=== PATIENT | female | born 1950 | race Caucasian/White ===

== ENCOUNTER 2017-01-28 18:34 | Inpatient (IN) | payer MEDICARE, OTHER ==
[~2017-01-28] VITALS: Ht 152.4 cm; Wt 45.4 kg
[~2017-01-28 18:34] MED LIST: LIPITOR10 MG PO
[2017-01-28 19:54] LABS: HEMOGLOBIN 15.4 gm/dl (12.3-15.3); RED BLOOD COUNT 5.52 M/UL (4.00-5.10); WHITE BLOOD COUNT 13.9 K/UL (4.5-11.0)
[2017-01-29 04:52] LABS: WHITE BLOOD COUNT 16.2 K/UL (4.5-11.0)
[2017-01-29 04:53] LABS: HEMOGLOBIN 12.9 gm/dl (12.3-15.3); RED BLOOD COUNT 4.71 M/UL (4.00-5.10)
[2017-01-29] MEDS ORDERED: ZYLOPRIM 100 M100 MG PO (07:01)
[2017-01-29] MEDS ORDERED: LANTUS100 UNIT/1 SQ (07:01)
[2017-01-29] MEDS ORDERED: DOXEPIN HCL25 MG PO (07:02)
[2017-01-29] MEDS ORDERED: JANUMET 50-1,01 EACH PO (07:02)
[2017-01-29] MEDS ORDERED: FARXIGA10 MG PO (07:02)
[2017-01-29] MEDS ORDERED: NEURONTIN 300300 MG PO (07:03)
[2017-01-29] MEDS ORDERED: ALENDRONATE SOD70 MG PO (07:03)
[2017-01-29] MEDS ORDERED: HYDROCODON-ACE1 EAC6 PO (07:04)
[2017-01-30 04:51] LABS: HEMOGLOBIN 13.4 gm/dl (12.3-15.3); RED BLOOD COUNT 4.91 M/UL (4.00-5.10); WHITE BLOOD COUNT 12.6 K/UL (4.5-11.0)
[2017-01-30 05:10] LABS: BUN/CREATININE RATIO 24 (0-10)
[2017-01-31 05:20] LABS: HEMOGLOBIN 13.4 gm/dl (12.3-15.3); RED BLOOD COUNT 4.92 M/UL (4.00-5.10); WHITE BLOOD COUNT 12.8 K/UL (4.5-11.0)
[2017-01-31 05:56] LABS: BUN/CREATININE RATIO 29 (0-10)
[2017-02-01 06:40] LABS: HEMOGLOBIN 13.9 gm/dl (12.3-15.3); RED BLOOD COUNT 5.06 M/UL (4.00-5.10); WHITE BLOOD COUNT 10.6 K/UL (4.5-11.0)
[2017-02-01 06:58] LABS: BUN/CREATININE RATIO 19 (0-10)
[2017-02-02 05:55] LABS: HEMOGLOBIN 13.2 gm/dl (12.3-15.3); RED BLOOD COUNT 4.83 M/UL (4.00-5.10); WHITE BLOOD COUNT 8.8 K/UL (4.5-11.0)
[2017-02-02 06:12] LABS: BUN/CREATININE RATIO 18 (0-10)
[2017-02-03 05:36] LABS: HEMOGLOBIN 11.3 gm/dl (12.3-15.3)
[2017-02-03 05:45] LABS: RED BLOOD COUNT 4.16 M/UL (4.00-5.10); WHITE BLOOD COUNT 6.4 K/UL (4.5-11.0)
[2017-02-03 05:56] LABS: BUN/CREATININE RATIO 16 (0-10)
--- NOTE | 2017-02-03 11:28 | NUR ---
1130 - Fingerstick noted at 58; patient denies any C/O; repeated finger stick immediately in other hand; noted at 63. 4 oz OJ given and drank, lunch previously order and awaoting arrival; will recheck fingerstick at 1230.
[2017-02-03 15:06] LABS: BUN/CREATININE RATIO 12 (0-10)
--- NOTE | 2017-02-03 15:59 | NUR ---
[id number] - Dr Samson here to do bedside Thoracentesis of RIGHT side, timeout performed at bedside. 450 ml Clear-yellow fluid returned; patient tolerated well, with mo S\S noted of pneumothorax - STAT PCR ordered. Pleural fluid sent to lab per orders.
[2017-02-03 16:22] LABS: LDH, BODY FLUID 390 U/L; TOTAL PROTEIN, BODY FLUID 3.3 gm/dL
[2017-02-03 16:33] LABS: BODY FLUID SOURCE PLEURAL
[2017-02-04 05:49] LABS: HEMOGLOBIN 11.7 gm/dl (12.3-15.3); RED BLOOD COUNT 4.34 M/UL (4.00-5.10); WHITE BLOOD COUNT 5.8 K/UL (4.5-11.0)
[2017-02-04 06:15] LABS: BUN/CREATININE RATIO 10 (0-10)
[2017-02-05 05:28] LABS: RED BLOOD COUNT 4.47 M/UL (4.00-5.10); WHITE BLOOD COUNT 6.4 K/UL (4.5-11.0)
[2017-02-05 05:42] LABS: BUN/CREATININE RATIO 12 (0-10)
[2017-02-05] MEDS ORDERED: COMBIVENT0.074 GM/I INH ×2 (14:01→14:02)
[2017-02-05] MEDS ORDERED: ZYVOX600 MG PO (14:04)
== END 2017-02-05 15:05 | disposition home or self-care (01) | DRG 853 ==
LOC: ER1 18:34 → ZEROF 01-29 00:59 → PROG CARE 01-29 00:59 → M/S 01-31 21:25
PROVIDERS: Family Medicine; Internal Medicine; ADMIT Emergency Medicine
PROC: 0J990ZZ Drainage of Buttock Subcutaneous Tissue and Fascia, Open Approach (ICD-10-PCS; principal; 2017-02-01)
PROC: 0W993ZZ Drainage of Right Pleural Cavity, Percutaneous Approach (ICD-10-PCS; 2017-02-03)
DX: A41.9 Sepsis, unspecified organism (principal); J15.212 Pneumonia due to Methicillin resistant Staphylococcus aureus; L02.31 Cutaneous abscess of buttock; N30.00 Acute cystitis without hematuria; J91.8 Pleural effusion in other conditions classified elsewhere; R09.02 Hypoxemia; E87.6 Hypokalemia; E11.65 Type 2 diabetes mellitus with hyperglycemia; R63.4 Abnormal weight loss; I10 Essential (primary) hypertension; E78.5 Hyperlipidemia, unspecified; R53.1 Weakness; B95.62 Methicillin resistant Staphylococcus aureus infection as the cause of diseases classified elsewhere; Z79.4 Long term (current) use of insulin; Z79.891 Long term (current) use of opiate analgesic; Z79.899 Other long term (current) drug therapy
CPT/HCPCS: 36415; 36600; 70450; 71010; 71020; 71250; 71260; 80048; 80053; 80202; 81001; 82550; 82553; 82803; 82945; 82962; 83605; 83615; 83874; 84132; 84155; 84157; 84484; 85025; 85027; 87040; 87070; 87077; 87081; 87086; 87186; 87205; 87880; 89051; 93005; 94640; 94664; 96361; 96365; 96367; 99285; J0456; J0696; J1956; J3370; J7030; J7050; J7070; Q9962

== ENCOUNTER → 2017-03-01 | Outpatient (CLI) | payer MEDICARE, OTHER ==
[~2017-03-01] MED LIST changes: +ALENDRONATE SOD70 MG PO; +COMBIVENT0.074 GM/I INH; +DOXEPIN HCL25 MG PO; +FARXIGA10 MG PO; +HYDROCODON-ACE1 EAC6 PO; +JANUMET 50-1,01 EACH PO; +LANTUS100 UNIT/1 SQ; +NEURONTIN 300300 MG PO; +ZYLOPRIM 100 M100 MG PO; +ZYVOX600 MG PO
== END ==
LOC: RAD 16:16
DX: J15.8 Pneumonia due to other specified bacteria (principal); I12.9 Hypertensive chronic kidney disease with stage 1 through stage 4 chronic kidney disease, or unspecified chronic kidney disease; N18.3 Chronic kidney disease, stage 3 (moderate); E11.65 Type 2 diabetes mellitus with hyperglycemia; E53.9 Vitamin B deficiency, unspecified; E55.9 Vitamin D deficiency, unspecified; E78.2 Mixed hyperlipidemia; E79.0 Hyperuricemia without signs of inflammatory arthritis and tophaceous disease; G89.4 Chronic pain syndrome; I95.2 Hypotension due to drugs; J01.80 Other acute sinusitis; K05.11 Chronic gingivitis, non-plaque induced; L08.89 Other specified local infections of the skin and subcutaneous tissue; M15.8 Other polyosteoarthritis; M51.36 Other intervertebral disc degeneration, lumbar region; M81.0 Age-related osteoporosis without current pathological fracture; R22.0 Localized swelling, mass and lump, head; R63.4 Abnormal weight loss; R68.84 Jaw pain
CPT/HCPCS: 71020

== ENCOUNTER 2017-08-27 10:41 | Emergency (ER) | payer MEDICARE, OTHER ==
[2017-08-27 11:48] LABS: HEMOGLOBIN 13.1 gm/dl (12.3-15.3); RED BLOOD COUNT 4.76 M/UL (4.00-5.10); WHITE BLOOD COUNT 8.1 K/UL (4.5-11.0)
[2017-08-27 12:07] LABS: BUN/CREATININE RATIO 21 (0-10)
== END 2017-08-27 14:10 | disposition home or self-care (01) ==
LOC: ER1 10:41
PROVIDERS: Physician Assistant
DX: J18.9 Pneumonia, unspecified organism (principal); M54.2 Cervicalgia; H92.02 Otalgia, left ear; R51 Headache; E11.9 Type 2 diabetes mellitus without complications; F17.290 Nicotine dependence, other tobacco product, uncomplicated
CPT/HCPCS: 71260; 80053; 85025; 99284; J7050; Q9962

== ENCOUNTER 2020-12-23 10:44 | Emergency (ER) | payer MEDICARE, OTHER | END 2020-12-23 13:26 | disposition home or self-care (01) | LOC: ER1 10:44 | DX: M25.572 Pain in left ankle and joints of left foot (principal) | CPT/HCPCS: 73610; 99283 ==

== ENCOUNTER → 2020-12-23 | Outpatient (CLI) | payer MEDICARE, OTHER ==
[~2020-12-23] MED LIST changes: +BASAGLAR K100 UNIT/1 SQ; +ECOTRIN81 MG PO; +FLOMAX0.4 MG PO; +NORCO 5-325 TA1 EACH PO; +NOVOLOG100 UNIT/1 SQ; +ZOFRAN ODT 4 MG4 MG SL
[2020-12-23 10:20] LABS: BUN/CREATININE RATIO 18 (0-10)
== END ==
LOC: LAB 09:26
PROVIDERS: Emergency Medicine
DX: E11.649 Type 2 diabetes mellitus with hypoglycemia without coma (principal); E11.65 Type 2 diabetes mellitus with hyperglycemia; G89.4 Chronic pain syndrome; M15.8 Other polyosteoarthritis; M51.36 Other intervertebral disc degeneration, lumbar region; E11.22 Type 2 diabetes mellitus with diabetic chronic kidney disease; I12.9 Hypertensive chronic kidney disease with stage 1 through stage 4 chronic kidney disease, or unspecified chronic kidney disease; N18.30 Chronic kidney disease, stage 3 unspecified; M81.0 Age-related osteoporosis without current pathological fracture
CPT/HCPCS: 36415; 80053; 83036

== ENCOUNTER 2021-01-17 20:24 | Emergency (ER) | payer MEDICARE, OTHER ==
[2021-01-17 20:57] LABS: HEMOGLOBIN 15.9 gm/dl (12.3-15.3); RED BLOOD COUNT 5.85 M/UL (4.00-5.10); WHITE BLOOD COUNT 10.1 K/UL (4.5-11.0)
[2021-01-17 21:30] LABS: BUN/CREATININE RATIO 13 (0-10)
== END 2021-01-18 00:01 | disposition home or self-care (01) ==
LOC: ER1 20:24
PROVIDERS: Emergency Medicine
DX: M17.11 Unilateral primary osteoarthritis, right knee (principal); R00.0 Tachycardia, unspecified; E11.9 Type 2 diabetes mellitus without complications; I10 Essential (primary) hypertension
CPT/HCPCS: 36415; 71045; 73562; 80053; 82550; 82553; 83874; 84484; 85025; 85379; 93005; 99284; Q9967

== ENCOUNTER → 2021-04-18 | Outpatient (CLI) | payer MEDICARE, OTHER | LOC: EXRD 11:15 | DX: M79.604 Pain in right leg (principal); M79.605 Pain in left leg | CPT/HCPCS: 93925 ==

== ENCOUNTER → 2021-06-26 | Outpatient (CLI) | payer MEDICARE, OTHER ==
[~2021-06-26] MED LIST changes: +ATORVASTATIN CA40 MG PO; +AUGMENTIN 875-1 EACH PO; -BASAGLAR K100 UNIT/1 SQ; +ELIQUIS2.5 MG PO; +HUMALOG 10100 UNITS/ SC; +HUMALOG100 UNIT/3 INJ; +LOPRESSOR 25 MG25 MG PO; +MELOXICAM15 MG PO; +METOPROLOL TART25 MG PO; +MUPIROCIN22 GM TOP; -NEURONTIN 300300 MG PO; +NEURONTIN600 MG PO; +TOUJEO MAX300 UNIT/1 SQ
[2021-06-26 13:01] LABS: HEMOGLOBIN 14.4 gm/dl (12.3-15.3); RED BLOOD COUNT 5.09 M/UL (4.00-5.10); WHITE BLOOD COUNT 4.3 K/UL (4.5-11.0)
[2021-06-27 06:10] LABS: CREATININE, URINE 72.6 mg/dL (Not Estab.)
[2021-06-27 18:12] LABS: CHOLESTEROL, TOTAL 155 mg/dL (100-199); HDL SIZE 9.3 nm (>=9.2); HDL-C 51 mg/dL (>39); HDL-P (TOTAL) 28.3 umol/L (>=30.5); LARGE HDL-P 5.7 umol/L (>=4.8); LARGE VLDL-P 2.7 nmol/L (<=2.7); LDL SIZE 20.9 nm (>20.5); LDL SIZE 20.9 nm (>=20.8); LDL-C 76 mg/dL (0-99); LDL-P 989 nmol/L (<1000); LP-IR SCORE 47 (<=45); SMALL LDL-P 336 nmol/L (<=527); TRIGLYCERIDES 166 mg/dL (0-149); VLDL SIZE 47.2 nm (<=46.6)
== END ==
LOC: LAB 11:31
PROVIDERS: Emergency Medicine
DX: E11.22 Type 2 diabetes mellitus with diabetic chronic kidney disease (principal); I12.9 Hypertensive chronic kidney disease with stage 1 through stage 4 chronic kidney disease, or unspecified chronic kidney disease; N18.30 Chronic kidney disease, stage 3 unspecified; E11.65 Type 2 diabetes mellitus with hyperglycemia; E11.69 Type 2 diabetes mellitus with other specified complication; E78.2 Mixed hyperlipidemia
CPT/HCPCS: 36415; 80053; 80061; 82043; 82570; 83036; 83704; 84443; 84550; 85025

== ENCOUNTER 2021-06-28 09:23 | Emergency (ER) | payer MEDICARE, OTHER ==
[~2021-06-28 09:23] MED LIST changes: -ALENDRONATE SOD70 MG PO; -ATORVASTATIN CA40 MG PO; -AUGMENTIN 875-1 EACH PO; -ELIQUIS2.5 MG PO; -HUMALOG 10100 UNITS/ SC; -HUMALOG100 UNIT/3 INJ; -LIPITOR10 MG PO; -LOPRESSOR 25 MG25 MG PO; -MELOXICAM15 MG PO; -METOPROLOL TART25 MG PO; -MUPIROCIN22 GM TOP; -NEURONTIN600 MG PO; -TOUJEO MAX300 UNIT/1 SQ
[2021-08-18] MEDS ORDERED: ALENDRONATE SOD70 MG PO (07:03)
== END 2021-06-28 14:45 | disposition home or self-care (01) ==
LOC: ER1 09:23
DX: M54.5 Low back pain (principal); R05 Cough; E11.9 Type 2 diabetes mellitus without complications; Z90.710 Acquired absence of both cervix and uterus; W19.XXXA Unspecified fall, initial encounter
CPT/HCPCS: 71045; 72131; 72170; 99284

== ENCOUNTER 2021-07-02 12:45 | Inpatient (IN) | payer MEDICARE, OTHER ==
[~2021-07-02] VITALS: Ht 160 cm; Wt 61.2 kg
[~2021-07-02 12:45] MED LIST changes: +ALENDRONATE SOD70 MG PO
[2021-07-02 16:40] LABS: HEMOGLOBIN 13.9 gm/dl (12.3-15.3); RED BLOOD COUNT 5.25 M/UL (4.00-5.10); WHITE BLOOD COUNT 4.1 K/UL (4.5-11.0)
[2021-07-03 05:03] LABS: HEMOGLOBIN 14.8 gm/dl (12.3-15.3); RED BLOOD COUNT 5.26 M/UL (4.00-5.10); WHITE BLOOD COUNT 4.4 K/UL (4.5-11.0)
[2021-07-03 05:23] LABS: BUN/CREATININE RATIO 29 (0-10)
[2021-07-03] MEDS ORDERED: NEURONTIN600 MG PO (07:03)
[2021-07-03] MEDS ORDERED: MELOXICAM15 MG PO (13:01)
[2021-07-03] MEDS ORDERED: MUPIROCIN22 GM TOP (13:05)
[2021-07-03] MEDS ORDERED: METOPROLOL TART25 MG PO (13:06)
[2021-07-03] MEDS ORDERED: LIPITOR10 MG PO (18:58)
--- NOTE | 2021-07-03 19:10 | NUR ---
Was informed by powerhouse mechanic Dr. Sanz (radiologist) was trying to reach me via telephone. Returned Dr. Sanz phone call at this time. 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 Immediately contacted Dr. Farah of MRI results. Dr. Farah informed me to place orders for carotid Duplex, 2D Echo and modify Lipitor to 40mg QHS. WCTM patient and notify MD of any changes.
--- NOTE | 2021-07-03 19:38 | NUR ---
Contacted Dr. Massimo Fine, informed him of MRI results. Dr. Fine states he will see patient in the morning.
[2021-07-03] MEDS ORDERED: TOUJEO MAX300 UNIT/1 SQ (22:22)
[2021-07-04 09:42] LABS: BUN/CREATININE RATIO 35 (0-10)
[2021-07-04 14:51] LABS: BUN/CREATININE RATIO 35 (0-10)
[2021-07-05 05:42] LABS: HEMOGLOBIN 14.5 gm/dl (12.3-15.3); RED BLOOD COUNT 5.25 M/UL (4.00-5.10); WHITE BLOOD COUNT 5.3 K/UL (4.5-11.0)
[2021-07-05 06:01] LABS: BUN/CREATININE RATIO 41 (0-10)
[2021-07-06 06:32] LABS: HEMOGLOBIN 15.3 gm/dl (12.3-15.3); RED BLOOD COUNT 5.47 M/UL (4.00-5.10); WHITE BLOOD COUNT 5.2 K/UL (4.5-11.0)
[2021-07-06 08:11] LABS: BUN/CREATININE RATIO 36 (0-10)
[2021-07-07 09:01] LABS: HEMOGLOBIN 15.2 gm/dl (12.3-15.3); RED BLOOD COUNT 5.43 M/UL (4.00-5.10); WHITE BLOOD COUNT 5.7 K/UL (4.5-11.0)
[2021-07-07 09:41] LABS: BUN/CREATININE RATIO 31 (0-10)
[2021-07-08 06:23] LABS: HEMOGLOBIN 14.1 gm/dl (12.3-15.3); RED BLOOD COUNT 5.05 M/UL (4.00-5.10); WHITE BLOOD COUNT 6.9 K/UL (4.5-11.0)
[2021-07-08 06:41] LABS: BUN/CREATININE RATIO 26 (0-10)
[2021-07-09 07:20] LABS: HEMOGLOBIN 13.7 gm/dl (12.3-15.3); RED BLOOD COUNT 5.15 M/UL (4.00-5.10)
[2021-07-09 07:47] LABS: BUN/CREATININE RATIO 26 (0-10)
[2021-07-10 07:09] LABS: HEMOGLOBIN 13.8 gm/dl (12.3-15.3); RED BLOOD COUNT 5.19 M/UL (4.00-5.10)
[2021-07-10 07:12] LABS: WHITE BLOOD COUNT 8.8 K/UL (4.5-11.0)
[2021-07-10 07:21] LABS: BUN/CREATININE RATIO 25 (0-10)
[2021-07-11 04:10] LABS: BUN/CREATININE RATIO 25 (0-10)
[2021-07-11 05:36] LABS: RED BLOOD COUNT 5.7 M/UL (4.00-5.10)
[2021-07-11 05:37] LABS: WHITE BLOOD COUNT 15.4 K/UL (4.5-11.0)
[2021-07-11 05:38] LABS: HEMOGLOBIN 15.5 gm/dl (12.3-15.3)
[2021-07-12 07:17] LABS: HEMOGLOBIN 14.9 gm/dl (12.3-15.3); RED BLOOD COUNT 5.22 M/UL (4.00-5.10); WHITE BLOOD COUNT 14.5 K/UL (4.5-11.0)
[2021-07-12 07:38] LABS: BUN/CREATININE RATIO 26 (0-10)
--- NOTE | 2021-07-13 01:27 | NUR ---
APPROX. 184: PT WAS ON NONREBREATHER MASK AT 15L. O2 SATURATION 91%. CAME TO SEE PT. SEE PROVIDER NOTIFICATIONS FOR DETAILS. ORDER PLACED TO MOVE PT TO PCU. APPROX. 1917: HOLDER PILE DRIVING (NILS) STATED THAT PT WAS GOING TO PCU ROOM 6115. CURRENTLY WAITING ON PT TO BE D/C'D AND ROOM TO BE CLEANED. APPROX: 1933: CAME TO SEE PT. SEE PROVIDER NOTICATIONS FOR DETAILS. APPROX. 1937: NILS STATED THAT PCU ROOM WAS BEING CLEANED RIGHT NOW. APPROX. 2005: OBTAINED ORDER FROM TO PLACE PT ON BIPAP. SEE PROVIDER NOTIFICATIONS FOR DETAILS. APPROX. 2009: CAME TO SEE PT. APPROX. 2018: CALLED REPORT TO HEATH IN PCU. PT BEING TRANSFERRED TO ROOM 6115. APPROX. 2024: RESPIRATORY PLACED PT ON BIPAP. APPROX. 2033: RESPIRATORY ALONG WITH MOBILE APPLICATION TESTER TRANSFERRED PT TO STAT CT. AFTER CT SCAN RESPIRATORY AND MOBILE APPLICATION TESTER TRANSFERRED PT TO PCU, ROOM 6115. PT WAS NOT DISPLAYING ANY S/S OF DISTRESS.
[2021-07-13 03:09] LABS: HEMOGLOBIN 14.8 gm/dl (12.3-15.3); RED BLOOD COUNT 5.25 M/UL (4.00-5.10); WHITE BLOOD COUNT 16.8 K/UL (4.5-11.0)
[2021-07-13 03:48] LABS: BUN/CREATININE RATIO 41 (0-10)
[2021-07-13 15:11] LABS: BORDETELLA PARAPERTUSSIS Not Detected (Not Detectd); BORDETELLA PERTUSSIS Not Detected (Not Detectd); CHLAMYDIA PNEUMONIAE Not Detected (Not Detectd); CORONAVIRUS HKU1 Not Detected (Not Detectd); CORONAVIRUS NL63 Not Detected (Not Detectd); CORONAVIRUS OC43 Not Detected (Not Detectd); CORONOAVIRUS 229E Not Detected (Not Detectd); HUMAN METAPNEUMOVIRUS Not Detected (Not Detectd); HUMAN RHINOVIRUS/ENTEROVIRUS Not Detected (Not Detectd); INFLUENZA A Not Detected (Not Detectd); INFLUENZA B Not Detected (Not Detectd); MYCOPLASMA PNEUMONIAE Not Detected (Not Detectd); PARAINFLUENZA VIRUS 1 Not Detected (Not Detectd); PARAINFLUENZA VIRUS 2 Not Detected (Not Detectd); PARAINFLUENZA VIRUS 3 Not Detected (Not Detectd); PARAINFLUENZA VIRUS 4 Not Detected (Not Detectd); RESPIRATORY SYNCYTIAL VIRUS Not Detected (Not Detectd)
[2021-07-13 16:52] LABS: SARS-CoV-2 DETECTED (Not Detectd)
[2021-07-14 03:55] LABS: HEMOGLOBIN 14.1 gm/dl (12.3-15.3); RED BLOOD COUNT 5.05 M/UL (4.00-5.10); WHITE BLOOD COUNT 14.4 K/UL (4.5-11.0)
[2021-07-14 04:20] LABS: BUN/CREATININE RATIO 66 (0-10)
[2021-07-15 03:30] LABS: HEMOGLOBIN 13.1 gm/dl (12.3-15.3); RED BLOOD COUNT 4.92 M/UL (4.00-5.10)
[2021-07-15 03:31] LABS: WHITE BLOOD COUNT 9.2 K/UL (4.5-11.0)
[2021-07-15 03:49] LABS: BUN/CREATININE RATIO 57 (0-10)
[2021-07-16 06:53] LABS: HEMOGLOBIN 13.6 gm/dl (12.3-15.3); RED BLOOD COUNT 4.9 M/UL (4.00-5.10); WHITE BLOOD COUNT 8.9 K/UL (4.5-11.0)
[2021-07-16 07:20] LABS: BUN/CREATININE RATIO 57 (0-10)
[2021-07-16] MEDS ORDERED: HUMALOG 10100 UNITS/ SC (11:20)
[2021-07-16] MEDS ORDERED: ATORVASTATIN CA40 MG PO (11:20)
[2021-07-16] MEDS ORDERED: LOPRESSOR 25 MG25 MG PO (11:20)
[2021-07-16] MEDS ORDERED: ELIQUIS2.5 MG PO (11:25)
[2021-07-16] MEDS ORDERED: AUGMENTIN 875-1 EACH PO (12:10)
[2021-07-16] MEDS ORDERED: HYDROCODON-ACE1 EAC6 PO (12:10)
[2021-07-17 03:18] LABS: HEMOGLOBIN 13.2 gm/dl (12.3-15.3); RED BLOOD COUNT 4.76 M/UL (4.00-5.10); WHITE BLOOD COUNT 8.6 K/UL (4.5-11.0)
[2021-07-18 07:14] LABS: HEMOGLOBIN 12.9 gm/dl (12.3-15.3); RED BLOOD COUNT 4.81 M/UL (4.00-5.10); WHITE BLOOD COUNT 10.5 K/UL (4.5-11.0)
[2021-07-18 07:44] LABS: BUN/CREATININE RATIO 49 (0-10)
[2021-07-22 06:49] LABS: RED BLOOD COUNT 4.67 M/UL (4.00-5.10); WHITE BLOOD COUNT 12.5 K/UL (4.5-11.0)
[2021-07-22 07:33] LABS: BUN/CREATININE RATIO 63 (0-10)
== END 2021-07-23 19:27 | DRG 64 ==
LOC: ER1 12:45 → MED SURG 4 17:30 → M/S 17:30 → PROG CARE 17:30 → CDU 17:30 → M/S 07-03 13:50 → PROG CARE 07-12 20:34 → MED SURG 4 07-15 10:29
PROVIDERS: Emergency Medicine; Internal Medicine; ADMIT Internal Medicine
PROC: 8E0ZXY6 Isolation (ICD-10-PCS; 2021-07-02)
PROC: XW033E5 Introduction of Remdesivir Anti-infective into Peripheral Vein, Percutaneous Approach, New Technology Group 5 (ICD-10-PCS; principal; 2021-07-03)
PROC: 3E0333Z Introduction of Anti-inflammatory into Peripheral Vein, Percutaneous Approach (ICD-10-PCS; 2021-07-04)
PROC: B24BZZ4 Ultrasonography of Heart with Aorta, Transesophageal (ICD-10-PCS; 2021-07-04)
PROC: 0DH63UZ Insertion of Feeding Device into Stomach, Percutaneous Approach (ICD-10-PCS; 2021-07-10)
DX: I63.39 Cerebral infarction due to thrombosis of other cerebral artery (principal); U07.1 COVID-19; J12.82 Pneumonia due to coronavirus disease 2019; J69.0 Pneumonitis due to inhalation of food and vomit; J80 Acute respiratory distress syndrome; G93.41 Metabolic encephalopathy; L76.22 Postprocedural hemorrhage of skin and subcutaneous tissue following other procedure; C34.90 Malignant neoplasm of unspecified part of unspecified bronchus or lung; G93.49 Other encephalopathy; E87.2 Acidosis; E87.0 Hyperosmolality and hypernatremia; R47.01 Aphasia; Y83.8 Other surgical procedures as the cause of abnormal reaction of the patient, or of later complication, without mention of misadventure at the time of the procedure; E87.6 Hypokalemia; R53.81 Other malaise; E87.8 Other disorders of electrolyte and fluid balance, not elsewhere classified; R13.10 Dysphagia, unspecified; E11.40 Type 2 diabetes mellitus with diabetic neuropathy, unspecified; L89.316 Pressure-induced deep tissue damage of right buttock; M10.9 Gout, unspecified; E11.51 Type 2 diabetes mellitus with diabetic peripheral angiopathy without gangrene; M19.90 Unspecified osteoarthritis, unspecified site; G89.29 Other chronic pain; I10 Essential (primary) hypertension; Z79.4 Long term (current) use of insulin; Z79.82 Long term (current) use of aspirin; Z79.01 Long term (current) use of anticoagulants; Z90.710 Acquired absence of both cervix and uterus; Z80.6 Family history of leukemia; Z82.49 Family history of ischemic heart disease and other diseases of the circulatory system; Z79.899 Other long term (current) drug therapy
CPT/HCPCS: ECHO; 36415; 36600; 70450; 70551; 71045; 71046; 74018; 80048; 80053; 80307; 81001; 81003; 82009; 82010; 82140; 82550; 82553; 82803; 82962; 83605; 83690; 83735; 83874; 83880; 84100; 84132; 84439; 84443; 84484; 85025; 85027; 85379; 85610; 85730; 86140; 87040; 87070; 87086; 87205; 87633; 92507; 92526; 92610; 93005; 93306; 93880; 94640; 94660; 94760; 96374; 97110; 97110-GP-CQ; 97112; 97161; 97164; 97167; 97530; 97530-GP-CQ; 97535; 99285; J0696; J1100; J1650; J2001; J2185; J2310; J2704; J2765; J3480; J7030; Q9967; U0002; U0003

== ENCOUNTER 2021-08-18 08:20 | Inpatient (IN) | payer MEDICARE, OTHER ==
[~2021-08-18] VITALS: Ht 152.4 cm; Wt 55.4 kg
[~2021-08-18 08:20] MED LIST changes: +ATORVASTATIN CA40 MG PO; +AUGMENTIN 875-1 EACH PO; +ELIQUIS2.5 MG PO; +HUMALOG 10100 UNITS/ SC; +LIPITOR10 MG PO; +LOPRESSOR 25 MG25 MG PO; +MELOXICAM15 MG PO; +METOPROLOL TART25 MG PO; +MUPIROCIN22 GM TOP; +NEURONTIN600 MG PO
[2021-08-18 09:12] LABS: HEMOGLOBIN 14.1 gm/dl (12.3-15.3); RED BLOOD COUNT 4.78 M/UL (4.00-5.10); WHITE BLOOD COUNT 19.5 K/UL (4.5-11.0)
[2021-08-18] MEDS ORDERED: ATORVASTATIN CA40 MG PO (16:17)
[2021-08-18] MEDS ORDERED: HYDROCODON-ACE1 EAC6 PO (16:20)
[2021-08-18] MEDS ORDERED: HUMALOG100 UNIT/3 INJ (16:22)
[2021-08-18] MEDS ORDERED: METOPROLOL TART25 MG PO (16:23)
[2021-08-18] MEDS ORDERED: TOUJEO MAX300 UNIT/1 SQ (22:22)
[2021-08-19 02:12] LABS: HEMOGLOBIN 11.7 gm/dl (12.3-15.3); RED BLOOD COUNT 4.03 M/UL (4.00-5.10)
[2021-08-19 02:30] LABS: BUN/CREATININE RATIO 55 (0-10)
[2021-08-19 06:46] LABS: BUN/CREATININE RATIO 49 (0-10)
[2021-08-19 10:53] LABS: BUN/CREATININE RATIO 50 (0-10)
[2021-08-19 14:53] LABS: BUN/CREATININE RATIO 45 (0-10)
[2021-08-19 18:07] LABS: BUN/CREATININE RATIO 49 (0-10)
[2021-08-19 22:11] LABS: BUN/CREATININE RATIO 48 (0-10)
[2021-08-20 06:32] LABS: HEMOGLOBIN 12.2 gm/dl (12.3-15.3); RED BLOOD COUNT 4.24 M/UL (4.00-5.10)
[2021-08-20 06:33] LABS: WHITE BLOOD COUNT 5.7 K/UL (4.5-11.0)
[2021-08-21 07:09] LABS: HEMOGLOBIN 12.8 gm/dl (12.3-15.3); RED BLOOD COUNT 4.46 M/UL (4.00-5.10); WHITE BLOOD COUNT 4.6 K/UL (4.5-11.0)
[2021-08-21 08:29] LABS: BUN/CREATININE RATIO 47 (0-10)
[2021-08-22 07:30] LABS: HEMOGLOBIN 12.8 gm/dl (12.3-15.3); RED BLOOD COUNT 4.43 M/UL (4.00-5.10)
[2021-08-22 07:39] LABS: BUN/CREATININE RATIO 32 (0-10)
--- NOTE | 2021-08-22 17:48 | NUR ---
REPORT CALLED TO [facility]ALTH NURSE, MIGUEL A. PATIENT'S DAUGHTER VERIFIED THAT HOME EQUIPMENT WAS ON ITS WAY TO THE HOME AND [employer] STATED IT WOULD BE FINE TO SEND PATIENT BY AMBULANCE NOW. PATIENT AND DAUGHTER MADE AWARE.
--- NOTE | 2021-08-22 18:11 | NUR ---
REPORT CALLED TO [facility].
== END 2021-08-22 09:56 | disposition home health service (06) | DRG 637 ==
LOC: ER1 08:20 → CDU 10:04 → CCU 10:04 → MED SURG 4 10:04 → CCU 13:14 → MED SURG 4 08-19 11:50
PROVIDERS: Emergency Medicine; Internal Medicine; Physician Assistant; ADMIT Internal Medicine
PROC: 0DH63UZ Insertion of Feeding Device into Stomach, Percutaneous Approach (ICD-10-PCS; principal; 2021-08-19)
DX: E11.10 Type 2 diabetes mellitus with ketoacidosis without coma (principal); G93.41 Metabolic encephalopathy; U07.1 COVID-19; R65.10 Systemic inflammatory response syndrome (SIRS) of non-infectious origin without acute organ dysfunction; E87.0 Hyperosmolality and hypernatremia; R13.10 Dysphagia, unspecified; I10 Essential (primary) hypertension; E78.5 Hyperlipidemia, unspecified; Z86.73 Personal history of transient ischemic attack (TIA), and cerebral infarction without residual deficits; Z79.4 Long term (current) use of insulin; Z93.1 Gastrostomy status; Z79.82 Long term (current) use of aspirin; Z90.710 Acquired absence of both cervix and uterus; Z98.890 Other specified postprocedural states; Z80.6 Family history of leukemia; Z82.49 Family history of ischemic heart disease and other diseases of the circulatory system
CPT/HCPCS: 36415; 51702; 70450; 71045; 74230; 80048; 80053; 80307; 81001; 82009; 82550; 82553; 82803; 82962; 83605; 83690; 83735; 83874; 83880; 84100; 84439; 84443; 84484; 85025; 85027; 85610; 85730; 87040; 87086; 92526; 92610; 92611-GN; 93005; 96374; 97110; 97110-GP-CQ; 97116-GP-CQ; 97161; 97166; 99285; C9113; J0456; J0696; J1650; J3370; J7030; U0002

== ENCOUNTER → 2021-09-09 | Outpatient (CLI) | payer MEDICARE, OTHER ==
[~2021-09-09] MED LIST changes: +HUMALOG100 UNIT/3 INJ; +TOUJEO MAX300 UNIT/1 SQ
[2021-09-09 11:08] LABS: HEMOGLOBIN 11.9 gm/dl (12.3-15.3); RED BLOOD COUNT 4.17 M/UL (4.00-5.10); WHITE BLOOD COUNT 5.2 K/UL (4.5-11.0)
[2021-09-09 12:32] LABS: BUN/CREATININE RATIO 14 (0-10)
[2021-09-10 11:14] LABS: CREATININE, URINE 60.2 mg/dL (Not Estab.)
[2021-09-11 12:15] LABS: CHOLESTEROL, TOTAL 165 mg/dL (100-199); HDL SIZE 9.8 nm (>=9.2); HDL-C 70 mg/dL (>39); HDL-P (TOTAL) 35.1 umol/L (>=30.5); LARGE VLDL-P 2.6 nmol/L (<=2.7); LDL SIZE 20.8 nm (>20.5); LDL SIZE 20.8 nm (>=20.8); LDL-C 77 mg/dL (0-99); LDL-P 821 nmol/L (<1000); LP-IR SCORE 34 (<=45); SMALL LDL-P 351 nmol/L (<=527); TRIGLYCERIDES 98 mg/dL (0-149); VLDL SIZE 49.6 nm (<=46.6)
== END ==
LOC: LAB 10:00
PROVIDERS: Emergency Medicine
DX: E11.65 Type 2 diabetes mellitus with hyperglycemia (principal); E11.22 Type 2 diabetes mellitus with diabetic chronic kidney disease; I12.9 Hypertensive chronic kidney disease with stage 1 through stage 4 chronic kidney disease, or unspecified chronic kidney disease; N18.30 Chronic kidney disease, stage 3 unspecified; E78.2 Mixed hyperlipidemia
CPT/HCPCS: 36415; 80053; 80061; 82043; 82570; 83036; 83704; 84443; 84550; 85025

== ENCOUNTER 2021-10-27 02:09 | Emergency (ER) | payer MEDICARE, OTHER ==
[2021-10-27 03:02] LABS: HEMOGLOBIN 12.7 gm/dl (12.3-15.3); RED BLOOD COUNT 4.67 M/UL (4.00-5.10); WHITE BLOOD COUNT 7.3 K/UL (4.5-11.0)
[2021-10-27 03:04] LABS: BORDETELLA PARAPERTUSSIS Not Detected (Not Detectd); BORDETELLA PERTUSSIS Not Detected (Not Detectd); CHLAMYDIA PNEUMONIAE Not Detected (Not Detectd); CORONAVIRUS HKU1 Not Detected (Not Detectd); CORONAVIRUS NL63 Not Detected (Not Detectd); CORONAVIRUS OC43 Not Detected (Not Detectd); CORONOAVIRUS 229E Not Detected (Not Detectd); HUMAN METAPNEUMOVIRUS Not Detected (Not Detectd); HUMAN RHINOVIRUS/ENTEROVIRUS Not Detected (Not Detectd); INFLUENZA A Not Detected (Not Detectd); INFLUENZA B Not Detected (Not Detectd); MYCOPLASMA PNEUMONIAE Not Detected (Not Detectd); PARAINFLUENZA VIRUS 1 Not Detected (Not Detectd); PARAINFLUENZA VIRUS 2 Not Detected (Not Detectd); PARAINFLUENZA VIRUS 3 Not Detected (Not Detectd); PARAINFLUENZA VIRUS 4 Not Detected (Not Detectd)
[2021-10-27 03:19] LABS: BUN/CREATININE RATIO 16 (0-10)
[2021-10-27 03:56] LABS: RESPIRATORY SYNCYTIAL VIRUS DETECTED (Not Detectd); SARS-CoV-2 NOT DETECTED (Not Detectd)
[2021-10-27] MEDS ORDERED: ZITHROMAX250 MG PO (05:53)
[2021-10-27] MEDS ORDERED: DELSYM30 MG/5 ML PO (05:53)
== END 2021-10-27 05:56 | disposition home or self-care (01) ==
LOC: ER1 02:09
PROVIDERS: Physician Assistant Medical
DX: B34.9 Viral infection, unspecified (principal); J06.9 Acute upper respiratory infection, unspecified; E11.65 Type 2 diabetes mellitus with hyperglycemia; I25.10 Atherosclerotic heart disease of native coronary artery without angina pectoris; I10 Essential (primary) hypertension; Z20.822 Contact with and (suspected) exposure to COVID-19
CPT/HCPCS: 71045; 80053; 82009; 82962; 83605; 85025; 87040; 87633; 99283

== ENCOUNTER 2021-11-19 18:49 | Emergency (ER) | payer MEDICARE, OTHER ==
[~2021-11-19 18:49] MED LIST changes: +DELSYM30 MG/5 ML PO; +ZITHROMAX250 MG PO
== END 2021-11-19 20:10 | disposition left against medical advice (07) ==
LOC: ER1 18:49
DX: Z01.810 Encounter for preprocedural cardiovascular examination (principal); E11.9 Type 2 diabetes mellitus without complications; E78.5 Hyperlipidemia, unspecified; I10 Essential (primary) hypertension
CPT/HCPCS: 93005; 99283

== ENCOUNTER → 2021-12-01 | Outpatient (CLI) | payer MEDICARE, OTHER ==
[~2021-12-01] MED LIST changes: +MIRALAX17 GM PO
== END ==
LOC: KOH-I 13:16
DX: R10.32 Left lower quadrant pain (principal); M54.50 Low back pain, unspecified; K59.00 Constipation, unspecified
CPT/HCPCS: 74019

== ENCOUNTER 2021-12-03 19:26 | Emergency (ER) | payer MEDICARE, OTHER ==
[~2021-12-03 19:26] MED LIST changes: -MIRALAX17 GM PO
[2021-12-03 20:27] LABS: HEMOGLOBIN 13.2 gm/dl (12.3-15.3); RED BLOOD COUNT 5.39 M/UL (4.00-5.10); WHITE BLOOD COUNT 9.3 K/UL (4.5-11.0)
[2021-12-03 20:47] LABS: BUN/CREATININE RATIO 16 (0-10)
[2021-12-04] MEDS ORDERED: MIRALAX17 GM PO (00:47)
== END 2021-12-04 01:20 | disposition home or self-care (01) ==
LOC: ER1 19:26
PROVIDERS: Physician Assistant
DX: K59.00 Constipation, unspecified (principal); E11.65 Type 2 diabetes mellitus with hyperglycemia; Z20.822 Contact with and (suspected) exposure to COVID-19; I10 Essential (primary) hypertension
CPT/HCPCS: 80053; 81001; 82962; 85025; 96374; 99284; Q9967; U0002

== ENCOUNTER → 2022-01-28 | Outpatient (CLI) | payer MEDICARE, OTHER ==
[~2022-01-28] MED LIST changes: +MIRALAX17 GM PO
[2022-01-28 11:20] LABS: BUN/CREATININE RATIO 16 (0-10)
== END ==
LOC: LAB 10:07
PROVIDERS: Emergency Medicine
DX: E11.65 Type 2 diabetes mellitus with hyperglycemia (principal); E11.22 Type 2 diabetes mellitus with diabetic chronic kidney disease; I12.9 Hypertensive chronic kidney disease with stage 1 through stage 4 chronic kidney disease, or unspecified chronic kidney disease; N18.30 Chronic kidney disease, stage 3 unspecified; E78.2 Mixed hyperlipidemia
CPT/HCPCS: 36415; 80053; 83036; 84443

== ENCOUNTER → 2022-06-03 | Outpatient (CLI) | payer MEDICARE, OTHER ==
[2022-06-03 11:31] LABS: BUN/CREATININE RATIO 20 (0-10)
== END ==
LOC: LAB 09:15
PROVIDERS: Emergency Medicine
DX: E11.65 Type 2 diabetes mellitus with hyperglycemia (principal); I12.9 Hypertensive chronic kidney disease with stage 1 through stage 4 chronic kidney disease, or unspecified chronic kidney disease; E11.22 Type 2 diabetes mellitus with diabetic chronic kidney disease; N18.30 Chronic kidney disease, stage 3 unspecified; E78.2 Mixed hyperlipidemia
CPT/HCPCS: 36415; 80053; 83036

== ENCOUNTER → 2022-08-04 | Outpatient (CLI) | payer MEDICARE, OTHER ==
[2022-08-04 08:49] LABS: RED BLOOD COUNT 4.84 M/UL (4.00-5.10); WHITE BLOOD COUNT 5.2 K/UL (4.5-11.0)
[2022-08-04 09:15] LABS: BUN/CREATININE RATIO 24 (0-10)
[2022-08-05 12:14] LABS: C-PEPTIDE, SERUM <0.1 ng/mL (1.1-4.4); CREATININE, URINE 41.1 mg/dL (Not Estab.)
[2022-08-06 10:14] LABS: CHOLESTEROL, TOTAL 130 mg/dL (100-199); HDL SIZE 9.9 nm (>=9.2); HDL-C 62 mg/dL (>39); HDL-P (TOTAL) 33.3 umol/L (>=30.5); LARGE HDL-P 9.7 umol/L (>=4.8); LARGE VLDL-P 1.4 nmol/L (<=2.7); LDL SIZE 20.5 nm (>20.5); LDL SIZE 20.5 nm (>=20.8); LDL-C 46 mg/dL (0-99); LDL-P 490 nmol/L (<1000); LP-IR SCORE <25 (<=45); SMALL LDL-P 285 nmol/L (<=527); TRIGLYCERIDES 127 mg/dL (0-149)
[2022-08-07 16:11] LABS: ANTIPANCREATIC ISLET CELLS Negative (Neg:<1:1); GAD-65 AUTOANTIBODY 35.2 U/mL (0.0-5.0)
== END ==
LOC: LAB 08:06
PROVIDERS: Emergency Medicine; Nurse Practitioner
DX: E11.65 Type 2 diabetes mellitus with hyperglycemia (principal); I10 Essential (primary) hypertension; E78.2 Mixed hyperlipidemia
CPT/HCPCS: 36415; 80053; 80061; 82043; 82570; 83036; 83704; 84443; 84550; 84681; 85025; 86341